=== PATIENT | male | born 1960 | race African-American/Black ===

== ENCOUNTER 2025-08-29 19:55 | Emergency (ER) | payer SELFPAY ==
[~2025-08-29] VITALS: Ht 172.7 cm; Wt 78.0 kg
[2025-08-29 20:03] VITALS: O2SAT 98
[2025-08-29] MEDS: ZIPRASIDONE MESYLATE 20MG/VIAL IM ONE (20:23)
[2025-08-29 21:21] LABS: BASOPHILS % 1.1 % (0.0-2.0); EOSINOPHILS % 1.0 % (0.0-5.0); HEMATOCRIT. 42.9 % (42.0-52.0); HEMOGLOBIN. 14.3 g/dL (14.0-18.0); LYMPHOCYTES % 20.9 % (20.0-50.0); MEAN PLATELET VOLUME 8.6 fl (7.4-10.4); MONOCYTES % 13.2 % (2.0-8.0); NEUTROPHILS % 63.8 % (40.0-76.0); PLATELET 237 x1000/uL (130-400); RED BLOOD CELL COUNT 5.39 mill/uL (4.7-6.1); RED CELL DISTRIBUTION WIDTH 14.6 % (11.6-14.6)
[2025-08-29 21:27] LABS: CREATININE 1.1 mg/dL (0.6-1.3); UREA NITROGEN BLOOD 12 mg/dL (9-23)
[2025-08-29 21:28] LABS: ETHANOL BLOOD 29 mg/dL (<10)
[2025-08-29 22:58] LABS: *AMPHETAMINES SCREEN URINE NEGATIVE (NEGATIVE); *BARBITURATES SCREEN URINE NEGATIVE (NEGATIVE); *BENZODIAZEPINES SCREEN URINE NEGATIVE (NEGATIVE); *COCAINE SCREEN URINE PRESUMPTIVE POSITIVE (NEGATIVE); CANNABINOID URINE SCREEN PRESUMPTIVE POSITIVE (NEGATIVE); ECSTASY MDMA SCREEN URINE NEGATIVE (NEGATIVE); METHADONE URINE SCREEN NEGATIVE (NEGATIVE); OPIATES URINE SCREEN NEGATIVE (NEGATIVE); PHENCYCLIDINE URINE SCREEN NEGATIVE (NEGATIVE)
[2025-08-30] VITALS: BP 127/76; PULSE 101; RESP 19; TEMP 36.9; O2SAT 98
== END 2025-08-30 00:30 | disposition home or self-care (01) ==
LOC: ER 19:55 → EDBD 19:55 → ER 08-30 00:30
DX: T40.5X1A Poisoning by cocaine, accidental (unintentional), initial encounter (principal); Z79.899 Other long term (current) drug therapy; X58.XXXA Exposure to other specified factors, initial encounter; Y93.89 Activity, other specified; Y92.89 Other specified places as the place of occurrence of the external cause; Y99.8 Other external cause status
CPT/HCPCS: 80305; 80048; 80329; 80320; 85025; 36415; 96372; 99285; J3486; G0480